=== PATIENT | male | born 1960 | race Caucasian/White ===

== ENCOUNTER 2018-11-16 22:44 | Emergency (ER) | payer MEDICARE, MEDICAID ==
[~2018-11-16] VITALS: Ht 157.5 cm; Wt 93.2 kg
[~2018-11-16 22:44] MED LIST: ASPI81TA26 PO; FLOM0.4C39 PO; HYDR-3715 PO; METO1TAB32 PO; OMEP40CA2 PO; SIMV40TA2 PO; TRAZ-160 PO; VENL100T PO
[2018-11-16] MEDS ORDERED: BUPIVACAINE LIPOSOME/PF 1.3% 20ML VIAL (13.3MG/ML)(EXPAREL)(C9290 PER1MG) INFIL ONE (23:30)
[2018-11-16 23:53] LABS: BASO # 0.1 10^3/uL (0.0-0.2); BASO % 0.7 % (0.0-1.0); EOS # 0.2 10^3/uL (0.0-0.50); EOS % 2.9 % (0.0-3.0); HEMATOCRIT 37.2 % (42.0-52.0); HEMOGLOBIN 12.4 g/dl (13.5-17.5); LYMPH % 11.9 % (24.0-44.0); MEAN CORPUSCULAR HEMOGLOBIN 29.2 pg (27.0-33.0); MEAN CORPUSCULAR HGB CONC 33.3 g/dl (32.0-36.5); MEAN CORPUSCULAR VOLUME 87.5 fl (80.0-96.0); MONO # 0.7 10^3/uL (0.0-0.8); MONO % 8.2 % (0.0-5.0); NEUTROPHILS # 6.1 10^3/uL (1.8-7.7); NEUTROPHILS % 75.8 % (36.0-66.0); PLATELET COUNT, AUTOMATED 189 10^3/uL (150-450); RED BLOOD COUNT 4.25 10^6/uL (4.30-6.10); WHITE BLOOD COUNT 8.1 10^3/uL (4.0-10.0)
[2018-11-16 23:55] LABS: INR 0.96; PROTHROMBIN TIME 12.9 SECONDS (12.1-14.4)
[2018-11-16 23:56] LABS: PARTIAL THROMBOPLASTIN TIME 28.1 SECONDS (25.4-37.6)
[2018-11-17] MEDS ORDERED: NS 500 ML IV ONE ×2 (00:15→00:45)
[2018-11-17 00:16] LABS: BLOOD UREA NITROGEN 24 MG/DL (7-18); CALCIUM LEVEL 7.9 MG/DL (8.5-10.1); CARBON DIOXIDE LEVEL 31 MEQ/L (21-32); CHLORIDE LEVEL 108 MEQ/L (98-107); CPK CREATINE PHOSPHOKINASE 274 U/L (39-308); CREATININE FOR GFR 0.88 MG/DL (0.70-1.30); GLOMERULAR FILTRATION RATE > 60.0 (>56); GLUCOSE, FASTING 121 MG/DL (70-100); MB/CK RELATIVE INDEX 0.69 (< OR =4); POTASSIUM SERUM 4.3 MEQ/L (3.5-5.1); SODIUM LEVEL 141 MEQ/L (136-145); TROPONIN I < 0.02 NG/ML (< 0.10)
[2018-11-17] MEDS ORDERED: ISOVUE-370 76% 100ML VIAL (Q9967) As Ordered ONE (00:38)
--- NOTE | 2018-11-17 02:35 | REPVR ---
EXAM: CT Angiography Chest With Contrast EXAM DATE/TIME: 11/17/2018 12:57 AM CLINICAL HISTORY: 58 years old, male; Right-sided chest pain; Additional info: Cp/eval for R contusion. Evaluate for aortic injury. TECHNIQUE: Imaging protocol: Axial computed tomographic angiography images of the chest with intravenous contrast using CT angiography protocol. Coronal and sagittal reformatted images were created and reviewed. 3D rendering: MIP reconstructed images were created and reviewed. Radiation optimization: All CT scans at this facility use at least one of these dose optimization techniques: automated exposure control; mA and/or kV adjustment per patient size (includes targeted exams where dose is matched to clinical indication); or iterative reconstruction. Contrast material: ISO 370; Contrast volume: 75 ml; Contrast route: IV; COMPARISON: CR Chest, 1 view 11/16/2018 11:37 PM FINDINGS: Limitations: Examination is limited by motion artifact. Pulmonary arteries: No definite pulmonary embolism. Evaluation of the segmental pulmonary arteries are limited. Aorta: Normal. No aortic aneurysm. No aortic dissection. Mild atherosclerotic disease. Lungs: No masses. Linear atelectasis in the right middle lobe. Compressive atelectasis of the right lower lobe. Bleb in the right lower lobe. Pleural space: Moderate pleural effusion. Tiny right pneumothorax. Less than 5%. No left pleural effusion. No left pneumothorax. Heart: Normal. No cardiomegaly. No pericardial effusion. Liver: Multiple hypodense lesions in the left hepatic lobe. Unchanged from prior. Lymph nodes: Mediastinal lymphadenopathy. Few calcified left hilar nodes. Bones/joints: Mild degenerative changes of the shoulders bilaterally. Moderate degenerative spine. Acute severely displaced fracture of the right rib 10th rib posteriorly. No acute spinal fracture. Soft tissues: Unremarkable. IMPRESSION: 1. Limited evaluation. 2. No aortic dissection. 3. Tiny right pneumothorax. Less than 5%. 4. Moderate pleural effusion. 5. Mediastinal lymphadenopathy. Unknown etiology. 6. Multiple hypodense lesions of the left hepatic lobe. Unchanged from prior. No followup is necessary. 7. Acute severely displaced fracture of the right rib 10th rib posteriorly. 8. Additional findings as described. Electronically signed by: Rubina Cosme On 11/17/2018 02:34:51 AM
[2018-11-17 03:02] VITALS: BP 116/64
--- NOTE | 2018-11-17 08:56 | ED PDOC ---
Post-Departure Follow-Up margarita wagoner and néstor faxed formal report of cta chest for fu Hui Medeiros MD Nov 17, 2018 08:56
--- NOTE | 2018-11-17 09:01 | REP ---
CHEST, PORTABLE: AP portable view of the chest was performed compared with prior study of 05/24/2017. There is mild right pleural effusion with adjacent right base atelectasis/infiltrate. Subcentimeter nodular density is seen in the left lung base. The heart is not significantly enlarged. There is mild ectasia of the thoracic aorta. Electronically Signed by Edgar Delaney MD 11/17/2018 04:20 P
--- NOTE | 2018-11-17 14:45 | ECGEPIP ---
Stationary ECG Study [facility] - ED Test Date: 2018-11-16 Pat Name: JESE BACK Department: Room: - Gender: M Bag Valver: bryant : 1960 Requested By: JAMIA COMBS Order Number: [id number] Reading MD: Agus Rodríguez Measurements Intervals [place] Rate: 72 P: -2 SC: 155 QRS: -59 QRSD: 106 T: 18 QT: 372 QTc: 407 Interpretive Statements SINUS RHYTHM PATTERN CONSISTENT WITH PULMONARY DISEASE LEFT ANTERIOR FASCICULAR BLOCK Nonspecific T wave abnormality Comparison tracing not on file Electronically Signed On 11-17-2018 14:44:42 EDT by Agus Rodríguez
--- NOTE | 2018-11-17 14:46 | ECGEPIP ---
Stationary ECG Study [facility] - ED Test Date: 2018-11-17 Pat Name: JESE BACK Department: Room: - Gender: M Transmission Supervisor: bharath : 1960 Requested By: JAMIA COMBS Order Number: [id number] Reading MD: Agus Rodríguez Measurements Intervals [place] Rate: 72 P: 44 TN: 155 QRS: -56 QRSD: 101 T: 18 QT: 360 QTc: 396 Interpretive Statements SINUS RHYTHM MARKED LEFT AXIS DEVIATION PATTERN CONSISTENT WITH PULMONARY DISEASE Nonspecific T wave abnormality Similar to tracing done 11-16-18 at 2309 Electronically Signed On 11-17-2018 14:46:04 EDT by Agus Rodríguez
--- NOTE | 2018-11-20 06:44 | ED PDOC ---
Post-Departure Follow-Up deena palm and dr wagoner faxed formal report of cxr for fu maxg Hui Clark MD November 20, 2018 06:44
== END 2018-11-17 03:07 | disposition home or self-care (01) ==
LOC: M ED 22:44
DX: J90 Pleural effusion, not elsewhere classified (principal); R59.0 Localized enlarged lymph nodes; S22.31XD Fracture of one rib, right side, subsequent encounter for fracture with routine healing; X58.XXXD Exposure to other specified factors, subsequent encounter; Y92.89 Other specified places as the place of occurrence of the external cause; I10 Essential (primary) hypertension; E78.5 Hyperlipidemia, unspecified; F41.9 Anxiety disorder, unspecified; K21.9 Gastro-esophageal reflux disease without esophagitis; N40.0 Benign prostatic hyperplasia without lower urinary tract symptoms; Z79.899 Other long term (current) drug therapy; Z79.82 Long term (current) use of aspirin
CPT/HCPCS: 71045; 71275; 80048; 82550; 82553; 84484; 85025; 85610; 85730; 93005; 96360; 96361; 99285; C9290; Q9967

== ENCOUNTER 2018-12-04 22:57 | Emergency (ER) | payer MEDICARE, MEDICAID ==
[~2018-12-04] VITALS: Ht 157.5 cm; Wt 94.5 kg
[2018-12-05] MEDS ORDERED: PERCOCET 5MG/325MG TAB PO ONE
[2018-12-05 01:33] VITALS: BP 129/70
--- NOTE | 2018-12-05 09:29 | REP ---
Unilateral right ribs PA chest five views History: None provided Comparison chest 11/16/[address] ANGIO chest 11/17/2018 Patchy density is present in the right lower lobe consistent with atelectasis or infiltrate. The left lung is clear. Small right pleural effusion is present. The heart is normal in size. The pulmonary vasculature is normal in appearance. There is a fracture of the right 10th rib unchanged compared to the previous CT ANGIO chest. Impression: 1. Right lower lobe atelectasis or infiltrate. 2. Small right pleural effusion. 3. Right 10th rib fracture unchanged compared to the previous study. Electronically Signed by Teodoro Naik MD 12/05/2018 09:20 A
--- NOTE | 2018-12-09 13:59 | ED PDOC ---
Post-Departure Follow-Up dr wagoner faxed formal report of rib films for fu Hui Medeiros MD December 09, 2018 13:59
== END 2018-12-05 01:42 | disposition home or self-care (01) ==
LOC: M ED 22:57
DX: J90 Pleural effusion, not elsewhere classified (principal); S22.31XD Fracture of one rib, right side, subsequent encounter for fracture with routine healing; X58.XXXD Exposure to other specified factors, subsequent encounter; Y92.89 Other specified places as the place of occurrence of the external cause; J44.9 Chronic obstructive pulmonary disease, unspecified; I10 Essential (primary) hypertension; K21.9 Gastro-esophageal reflux disease without esophagitis; E78.5 Hyperlipidemia, unspecified; F33.9 Major depressive disorder, recurrent, unspecified; M54.5 Low back pain; Z79.899 Other long term (current) drug therapy; Z79.82 Long term (current) use of aspirin

== ENCOUNTER → 2019-03-19 | Outpatient (CLI) | payer MEDICARE, MEDICAID ==
[~2019-03-19] MED LIST changes: -TRAZ-160 PO; +TRAZ-252 PO
--- NOTE | 2019-03-30 12:26 | PFTRPT ---
Height: 62.00 Inches Weight: 198.00 Lbs BSA: 1.90 Diagnosis: R91.8 DATE OF PROCEDURE: 03/19/2019 ORDERED BY: Dr. Gale Spirometry: Pre and post bronchodilator study of excellent technical quality. Forced vital capacity reduced. FEV1 out of proportion. Obstructive index is, therefore, reduced. Flow Volume Loop: Expiratory limb of the flow volume loop consistent with flow rate limitation. Significant bronchodilator response is identified. Lung Volumes: Total lung capacity was not able to be performed as the patient was unable to perform the plethysmography maneuvers for that portion of the study. Diffusing Capacity: Diffusing capacity, although mildly reduced, is appropriate for alveolar volume. Airway Mechanics: Airway resistance markedly elevated with concomitant decrease in airway conductance. IMPRESSION: Mild obstructive ventilatory impairment with significant bronchodilator response. Please correlate clinically. MTDD
== END ==
LOC: M CARPUL 08:34
PROVIDERS: ATTEND Internal Medicine Pulmonary Disease
DX: R91.8 Other nonspecific abnormal finding of lung field (principal)

== ENCOUNTER → 2019-07-17 | Outpatient (CLI) | payer MEDICARE, MEDICAID ==
[~2019-07-17] MED LIST changes: +E-Z-GAS II EFFERVESCENT PACKET (SODIUM BICARB./CITRIC ACID/SIMETHICONE) As Ordered ONE; +E-Z-PAQUE 96% w/w SUSP 176GM BTL As Ordered ONE; -OMEP40CA2 PO; +OMEP40CA97 PO; -SIMV40TA2 PO; +SIMV40TA20 PO; +VARIBAR NECTAR 40% w/v 240ML SUSP BTL As Ordered ONE; +VARIBAR PUDDING 40% w/v 230ML TUBE As Ordered ONE
--- NOTE | 2019-07-18 09:04 | REP ---
Examination Requested: Cookie Swallow Reason For Exam: Dysphasia The procedure was performed by GURPREET Olivares, under the direct supervision of Dr. Kinsey. The procedure was performed with Leti Reddy from speech pathology present. 5 ml aliquots of thin, pudding, mixed fruit, soft food, and pill consistency barium was administered. Penetration was visualized with thin consistency barium. The detailed report of this examination will be provided by speech pathology. 1.4 minutes of fluoroscopy time was utilized for this procedure. Reviewed by GURPREET Metz 07/17/2019 01:50 P Electronically Signed by Antoine Kinsey MD 07/18/2019 08:54 A
== END ==
LOC: M RAD 12:28
PROVIDERS: ATTEND Physician Assistant
DX: R13.10 Dysphagia, unspecified (principal)

== ENCOUNTER → 2019-11-12 | Outpatient (CLI) | payer MEDICARE, MEDICAID ==
[~2019-11-12] MED LIST changes: -E-Z-GAS II EFFERVESCENT PACKET (SODIUM BICARB./CITRIC ACID/SIMETHICONE) As Ordered ONE; -E-Z-PAQUE 96% w/w SUSP 176GM BTL As Ordered ONE; -VARIBAR NECTAR 40% w/v 240ML SUSP BTL As Ordered ONE; -VARIBAR PUDDING 40% w/v 230ML TUBE As Ordered ONE
--- NOTE | 2019-11-12 11:47 | REP ---
CT CHEST WITHOUT IV CONTRAST: CT chest performed without IV contrast. Sagittal and coronal reconstruction images are performed. Comparison is made with a prior study of 03/31/2019 and 11/17/2018. Scattered interstitial fibrotic changes are seen bilaterally. These are greater on the right. There are small bullae in the right lower lobe and to a lesser extent, scattered throughout both lungs. There is a persistent 7 mm nodule in the left lower lobe, which has remained stable since the prior studies. There is an adjacent 2 mm nodular density medial to it. No new nodule is seen. There is no consolidation. Extensive mild mediastinal and hilar adenopathy is again noted unchanged. Some of the lymph nodes in the left mediastinum and hilum are partially calcified. No axillary adenopathy is seen. The heart is upper limits of normal in size. There is no pleural or pericardial effusion. A few small hypodensities in the left lobe of the liver are stable. A diverticulum is noted of the splenic flexure in the colon. Old right 10th rib fracture is again seen posteriorly. There are degenerative changes of the spine. There is a stable compression deformity of T12. IMPRESSION: Stable CT exam of the chest. No change in the 7 mm nodule left lower lobe for 1 year. Mediastinal and hilar adenopathy is also unchanged. Consider followup CT in 6-12 months. Electronically Signed by Edgar Delaney MD 11/12/2019 12:55 P
== END ==
LOC: M RAD 09:47
PROVIDERS: ATTEND Internal Medicine Pulmonary Disease
DX: R91.8 Other nonspecific abnormal finding of lung field (principal); R59.0 Localized enlarged lymph nodes; K76.89 Other specified diseases of liver; K57.90 Diverticulosis of intestine, part unspecified, without perforation or abscess without bleeding

== ENCOUNTER 2020-02-07 23:12 | Emergency (ER) | payer MEDICARE, MEDICAID ==
[2020-02-07] MEDS ORDERED: PROAAER10 INH (23:32)
[2020-02-07] MEDS ORDERED: BEVE1AER INH (23:32)
[2020-02-07] MEDS ORDERED: ARNU1INH PO (23:32)
[2020-02-08 00:14] LABS: BASO # 0.1 10^3/uL (0.0-0.2); BASO % 1.2 % (0.0-1.0); EOS # 0.2 10^3/uL (0.0-0.5); EOS % 3.8 % (0.0-3.0); HEMOGLOBIN 12.9 g/dl (13.5-17.5); LYMPH # 1.2 10^3/uL (1.5-5.0); LYMPH % 27.2 % (24.0-44.0); MEAN CORPUSCULAR HEMOGLOBIN 28.8 pg (27.0-33.0); MEAN CORPUSCULAR HGB CONC 33.1 g/dl (32.0-36.5); MEAN CORPUSCULAR VOLUME 87.1 fl (80.0-96.0); MONO # 0.6 10^3/uL (0.0-0.8); MONO % 14.1 % (0.0-5.0); NEUTROPHILS # 2.3 10^3/uL (1.5-8.5); NEUTROPHILS % 53.2 % (36.0-66.0); PLATELET COUNT, AUTOMATED 174 10^3/uL (150-450); RED BLOOD COUNT 4.48 10^6/uL (4.30-6.10); WHITE BLOOD COUNT 4.3 10^3/uL (4.0-10.0)
[2020-02-08] MEDS ORDERED: KETOROLAC 30 MG/ML 1ML VIAL IV ONE (00:15)
[2020-02-08 00:23] LABS: BLOOD UREA NITROGEN 21 MG/DL (7-18); CALCIUM LEVEL 8.3 MG/DL (8.5-10.1); CARBON DIOXIDE LEVEL 30 MEQ/L (21-32); CHLORIDE LEVEL 110 MEQ/L (98-107); CREATININE FOR GFR 0.86 MG/DL (0.70-1.30); GLOMERULAR FILTRATION RATE > 60.0 (>56); GLUCOSE, FASTING 99 MG/DL (70-100); POTASSIUM SERUM 3.8 MEQ/L (3.5-5.1); SODIUM LEVEL 142 MEQ/L (136-145)
[2020-02-08 00:35] LABS: INR 1.03; PARTIAL THROMBOPLASTIN TIME 27.6 SECONDS (25.0-38.4); PROTHROMBIN TIME 13.2 SECONDS (11.8-14.0)
[2020-02-08] MEDS ORDERED: ISOVUE-370 76% 100ML VIAL As Ordered ONE (01:18)
--- NOTE | 2020-02-08 02:10 | REPVR ---
PROCEDURE INFORMATION: Exam: CT Angiography Chest With Contrast Exam date and time: 02/08/2020 1:33 AM Age: 59 years old Clinical indication: Chest pain TECHNIQUE: Imaging protocol: Computed tomographic angiography of the chest with intravenous contrast. 3D rendering: MIP and/or 3D reconstructed images were created by the technologist. Radiation optimization: All CT scans at this facility use at least one of these dose optimization techniques: automated exposure control; mA and/or kV adjustment per patient size (includes targeted exams where dose is matched to clinical indication); or iterative reconstruction. Contrast material: ISO 370; Contrast volume: 75 ml; Contrast route: INTRAVENOUS (IV); COMPARISON: 1. CT ANGIO CHEST 11/17/2018 12:[address] Chest without contrast 11/12/2019 10:04:32 AM FINDINGS: Pulmonary arteries: No pulmonary embolism. Aorta: The thoracic aorta is intact and patent. There is no thoracic aortic aneurysm, pseudoaneurysm, penetrating atherosclerotic ulcer, intramural hematoma, or dissection. There are mild atherosclerotic calcifications. Superior vena cava: Patent. Tracheobronchial tree: Intact and patent. Lungs: There are 2 mm and 7 mm solid pulmonary nodules in the left lower lobe, which are unchanged compared to the prior CTA chest on 11/17/[address] chest on 11/12/2019. No new pulmonary nodules are noted. There is no lung consolidation. There is scarring in the right middle lobe and dependent atelectasis in both lower lobes. There are mild centrilobular emphysematous changes. Pleural space: Normal. No pneumothorax or pleural effusion. Heart: No cardiomegaly or pericardial effusion. The ratio of the diameter of the right ventricle to the diameter of the left ventricle measures less than 1, which is within normal limits and there is no evidence for a right ventricular strain. Mediastinal space: No mediastinal fluid collection or pneumomediastinum is noted. Lymph nodes: There is prevascular, aortopulmonary window, right paratracheal, subcarinal, and bilateral hilar lymphadenopathy that is stable compared to the prior CTA chest on 11/17/[address] chest on 11/12/2019. There are several calcified prevascular, aortopulmonary window, and left hilar lymph nodes, which represent calcified granulomas that were also present in the prior studies. Liver: There are several cysts in the liver, the largest measuring 14 mm, which are stable compared to the prior CTA chest on 11/17/[address] chest on 11/12/2019 and for which follow-up is not necessary. Gallbladder and bile ducts: The gallbladder is contracted. No calcified gallstones are seen. No dilation of the bile ducts is noted. No calcified stones are seen in the common bile duct. Pancreas: Unremarkable. No dilation of the main pancreatic duct is noted. There is no inflammatory fat stranding around the pancreas to suggest acute pancreatitis. Spleen: Unremarkable. No splenomegaly is noted. Adrenals: Normal. No adrenal mass is noted. Kidneys : There are several benign-appearing left renal sinus cysts for which follow-up is not necessary. The kidneys were not fully imaged. Limited bowel: There is colonic diverticulosis involving the proximal descending colon. The bowel was not fully imaged. Bones/joints: There is a chronic fracture deformity of the right posterior 10th rib. There are chronic mild anterior wedge compression deformities of T10 and T12 that are similar in appearance compared to the prior CTA chest on 11/17/2018. No acute fracture or dislocation is noted. 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 Soft tissues: Unremarkable. No soft tissue fluid collection. IMPRESSION: 1. No acute findings in the chest. No pulmonary embolism. 2. No thoracic aortic aneurysm, pseudoaneurysm, intramural hematoma, penetrating atherosclerotic ulcer, or dissection. 3. 2 mm and 7 mm solid pulmonary nodules in the left lower lobe, which are unchanged compared to the prior CTA chest on 11/17/[address] chest on 11/12/2019. For patients at low risk (minimal or absent history of smoking and of other known risk factors), recommend CT at 6-12 months, then consider CT at 18-24 months. For patients at high risk (history of smoking or of other known risk factors), recommend CT at 6-12 months, then CT at 18-24 months. (Fernando et al., Fleischner Society, 2017) 4. Prevascular, aortopulmonary window, right paratracheal, subcarinal, and bilateral hilar lymphadenopathy that is stable compared to the prior CTA chest on 11/17/[address] chest on 11/12/2019. Electronically signed by: Mike Wilson On 02/08/2020 02:10:19 AM
[2020-02-08] MEDS ORDERED: KETO10TAB PO (03:45)
[2020-02-08 04:03] VITALS: BP 153/80
--- NOTE | 2020-02-08 05:40 | ECGEPIP ---
[facility] - ED Test Date: 2020-02-07 Pat Name: JESE BACK Department: Room: - Gender: Male Roll Capper: amos : 1960 Requested By: JAMIA COMBS Order Number: [id number] Reading MD: Jarod Vasques Measurements Intervals [place] Rate: 52 P: 34 NM: 188 QRS: -43 QRSD: 113 T: 12 QT: 420 QTc: 394 Interpretive Statements SINUS BRADYCARDIA LEFT AXIS DEVIATION MODERATE INTRAVENTRICULAR CONDUCTION DELAY SIMILAR TO 11/17/18 Electronically Signed on 02-08-2020 5:40:20 EDT by Jarod Vasques
--- NOTE | 2020-02-08 05:41 | ECGEPIP ---
[facility] - ED Test Date: 2020-02-08 Pat Name: JESE BACK Department: Room: - Gender: Male Pharmacy Benefits Coordinator: MR : 1960 Requested By: JAMIA COMBS Order Number: [id number] Reading MD: Jarod Vasques Measurements Intervals [place] Rate: 47 P: 22 TN: 199 QRS: -41 QRSD: 110 T: 12 QT: 428 QTc: 380 Interpretive Statements SINUS BRADYCARDIA LEFT AXIS DEVIATION MODERATE INTRAVENTRICULAR CONDUCTION DELAY SIMILAR TO 02/07/20 Electronically Signed on 02-08-2020 5:41:27 EDT by Jarod Vasques
--- NOTE | 2020-02-08 08:30 | REP ---
Clinical: Chest pain . Comparison: 12/05/2018 . Findings: The mediastinum and cardiac silhouette are stable and within normal limits for portable technique. The lung praasd are clear without acute consolidation, effusion, or pneumothorax. Skeletal structures are intact. Impression: No acute cardiopulmonary process appreciated. Electronically Signed by Antoine Kinsey MD 02/08/2020 08:21 A
== END 2020-02-08 04:04 | disposition home or self-care (01) ==
LOC: M ED 23:12
DX: R07.1 Chest pain on breathing (principal); R94.31 Abnormal electrocardiogram [ECG] [EKG]; R91.8 Other nonspecific abnormal finding of lung field; K76.89 Other specified diseases of liver; I10 Essential (primary) hypertension; E78.5 Hyperlipidemia, unspecified; J45.909 Unspecified asthma, uncomplicated; K21.9 Gastro-esophageal reflux disease without esophagitis; F41.9 Anxiety disorder, unspecified; N40.1 Benign prostatic hyperplasia with lower urinary tract symptoms; Z79.51 Long term (current) use of inhaled steroids; Z79.82 Long term (current) use of aspirin; Z79.899 Other long term (current) drug therapy
CPT/HCPCS: 71045; 71275; 80047; 80048; 84484; 85025; 85610; 85730; 93005; 93041; 94760; 96374; 99285; J1885; Q9967

== ENCOUNTER 2020-03-23 11:50 | Emergency (ER) | payer MEDICARE, MEDICAID ==
[~2020-03-23 11:50] MED LIST changes: +ARNU1INH PO; +BEVE1AER INH; +KETO10TAB PO; +PROAAER10 INH
[2020-03-23 12:27] LABS: BASO # 0.1 10^3/uL (0.0-0.2); BASO % 1.2 % (0.0-1.0); EOS # 0.2 10^3/uL (0.0-0.5); EOS % 4.4 % (0.0-3.0); HEMATOCRIT 40.9 % (42.0-52.0); HEMOGLOBIN 13.3 g/dl (13.5-17.5); LYMPH % 24.6 % (24.0-44.0); MEAN CORPUSCULAR HEMOGLOBIN 28.7 pg (27.0-33.0); MEAN CORPUSCULAR HGB CONC 32.5 g/dl (32.0-36.5); MEAN CORPUSCULAR VOLUME 88.1 fl (80.0-96.0); MONO # 0.6 10^3/uL (0.0-0.8); MONO % 13.4 % (0.0-5.0); NEUTROPHILS # 2.3 10^3/uL (1.5-8.5); NEUTROPHILS % 55.9 % (36.0-66.0); PLATELET COUNT, AUTOMATED 182 10^3/uL (150-450); RED BLOOD COUNT 4.64 10^6/uL (4.30-6.10); WHITE BLOOD COUNT 4.1 10^3/uL (4.0-10.0)
--- NOTE | 2020-03-23 12:32 | REPVR ---
PROCEDURE INFORMATION: Exam: CT Cervical Spine Without Contrast Exam date and time: 03/23/2020 12:11 PM Age: 59 years old Clinical indication: Injury or trauma; Fall; Initial encounter; Blunt trauma TECHNIQUE: Imaging protocol: Computed tomography images of the cervical spine without contrast. Radiation optimization: All CT scans at this facility use at least one of these dose optimization techniques: automated exposure control; mA and/or kV adjustment per patient size (includes targeted exams where dose is matched to clinical indication); or iterative reconstruction. COMPARISON: XA Cookie Swallow Mod.Ba Swallow 07/17/2019 12:52 PM FINDINGS: Vertebrae: Loss and slight reversal of cervical lordosis may be positional or associated with muscular spasm. Vertebral body heights are maintained. There is no fracture or dislocation. Facet joints appear well aligned. 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 There is mild levoscoliosis at this level. Discs/Spinal canal/Neural foramina: There are degenerative changes with small disc osteophyte complexes which likely results in [id number] spinal stenosis greatest C6-C7. There is left C2-C3, left greater than right C3-C4, left greater than right C4-C5, greater than right C5-C6, left greater than right C6-C7, and bilateral C7-T1 neural foraminal narrowing. Prevertebral Space: Prevertebral soft tissues appear normal. Soft tissues: Unremarkable. Lungs: Lung apices are unremarkable for acute finding. IMPRESSION: 1. Loss of cervical lordosis. No evidence of fracture or dislocation. 2. Other findings as described. Electronically signed by: Ana Luisa Montoya On 03/23/2020 12:31:52 PM
--- NOTE | 2020-03-23 12:34 | REPVR ---
PROCEDURE INFORMATION: Exam: CT Head Without Contrast Exam date and time: 03/23/2020 12:11 PM Age: 59 years old Clinical indication: Injury or trauma; Fall; Initial encounter; Blunt trauma (contusions or hematomas) TECHNIQUE: Imaging protocol: Computed tomography of the head without contrast. Radiation optimization: All CT scans at this facility use at least one of these dose optimization techniques: automated exposure control; mA and/or kV adjustment per patient size (includes targeted exams where dose is matched to clinical indication); or iterative reconstruction. COMPARISON: No relevant prior studies available. FINDINGS: Brain: There is no acute intracranial hemorrhage. No extra-axial fluid collection. No evidence of acute infarct. Delaney white differentiation is intact. There is no evidence of mass. There is no mass effect or midline shift. Ventricles: No ventriculomegaly. Bones/joints: No acute fracture. Sinuses: There is mild mucosal thickening in left maxillary sinus. Mastoid air cells: No significant mastoid effusion. Soft tissues: Unremarkable as visualized. IMPRESSION: No evidence of acute intracranial abnormality. Electronically signed by: Ana Luisa Montoya On 03/23/2020 12:34:28 PM
[2020-03-23 12:37] LABS: INR 0.95; PROTHROMBIN TIME 12.8 SECONDS (11.8-14.0)
[2020-03-23 12:38] LABS: PARTIAL THROMBOPLASTIN TIME 26.3 SECONDS (25.0-38.4)
[2020-03-23 12:51] LABS: ALBUMIN 3.3 GM/DL (3.2-5.2); ALT/SGPT 24 U/L (12-78); AMYLASE 49 U/L (25-115); BILIRUBIN,DIRECT 0.1 MG/DL (0.0-0.2); BILIRUBIN,TOTAL 0.3 MG/DL (0.2-1.0); BLOOD UREA NITROGEN 24 MG/DL (7-18); CALCIUM LEVEL 8.7 MG/DL (8.5-10.1); CARBON DIOXIDE LEVEL 31 MEQ/L (21-32); CHLORIDE LEVEL 108 MEQ/L (98-107); CK-MB VALUE MASS 1.9 NG/ML (<3.6); CPK CREATINE PHOSPHOKINASE 128 U/L (39-308); CREATININE FOR GFR 0.78 MG/DL (0.70-1.30); ETHYL ALCOHOL (ETHANOL) < 0.003 % (0.000-0.010); GLOMERULAR FILTRATION RATE > 60.0 (>56); GLUCOSE, FASTING 86 MG/DL (70-100); LIPASE 65 U/L (73-393); MB/CK RELATIVE INDEX 1.48 (< OR =4); POTASSIUM SERUM 3.6 MEQ/L (3.5-5.1); SODIUM LEVEL 141 MEQ/L (136-145); TOTAL PROTEIN 6.5 GM/DL (6.4-8.2); TROPONIN I < 0.02 NG/ML (< 0.10)
--- NOTE | 2020-03-23 13:17 | REPVR ---
PROCEDURE INFORMATION: Exam: XR Chest, 1 View Exam date and time: 03/23/2020 1:07 PM Age: 59 years old Clinical indication: Injury or trauma; Fall; Initial encounter; Sprain or strain TECHNIQUE: Imaging protocol: XR of the chest Views: 1 view. COMPARISON: CR PORTABLE CHEST X-RAY 02/07/2020 11:37 PM FINDINGS: Lungs: There is stable left retrocardiac opacity likely related to bronchovascular markings. There is new right medial basilar opacity which may be atelectasis or infiltrate and pneumonia correlate clinically. Pleural space: No significant visible pleural effusion. No pneumothorax. Heart/Mediastinum: No significant cardiomegaly. Bones/joints: No acute finding. IMPRESSION: New right basilar opacity may be atelectasis and/or pneumonia. Electronically signed by: Ana Luisa Montoya On 03/23/2020 13:17:41 PM
--- NOTE | 2020-03-23 13:19 | REPVR ---
PROCEDURE INFORMATION: Exam: XR Left Elbow Exam date and time: 03/23/2020 1:07 PM Age: 59 years old Clinical indication: Injury or trauma; Fall; Initial encounter; Sprain or strain; Elbow; Left TECHNIQUE: Imaging protocol: XR Left elbow. Views: 3 or more views. COMPARISON: No relevant prior studies available. FINDINGS: Bones/joints: There is no evidence of acute fracture. No dislocation. Mild degenerative changes between humerus. Soft tissues: Soft tissues: There is no evidence of fat pad sign to suggest joint effusion. IMPRESSION: No evidence of fracture or dislocation. Electronically signed by: Ana Luisa Montoya On 03/23/2020 13:18:59 PM
[2020-03-23 14:55] VITALS: BP 134/75
[2020-03-23 15:59] LABS: AMPHETAMINES LEVEL URINE NEGATIVE (NEGATIVE); BARBITURATES URINE NEGATIVE (NEGATIVE); BENZODIAZEPINES URINE NEGATIVE (NEGATIVE); CANNABINOIDS URINE NEGATIVE (NEGATIVE); COCAINE METABOLITE URINE NEGATIVE (NEGATIVE); METHADONE URINE NEGATIVE (NEGATIVE); OPIATES URINE NEGATIVE (NEGATIVE); PHENCYCLIDINE URINE NEGATIVE (NEGATIVE)
[2020-03-23] MEDS ORDERED: ISOVUE-370 76% 100ML VIAL As Ordered ONE (16:34)
--- NOTE | 2020-03-23 17:07 | REPVR ---
PROCEDURE INFORMATION: Exam: CT Abdomen And Pelvis With Contrast Exam date and time: 03/23/2020 4:47 PM Age: 59 years old Clinical indication: Injury or trauma; Fall; Initial encounter; Blunt; Abdominal wall; Additional info: Fall- finding on chest xray TECHNIQUE: Imaging protocol: Computed tomography of the abdomen and pelvis with intravenous contrast. Radiation optimization: All CT scans at this facility use at least one of these dose optimization techniques: automated exposure control; mA and/or kV adjustment per patient size (includes targeted exams where dose is matched to clinical indication); or iterative reconstruction. Contrast material: ISO 370; Contrast volume: 100 ml; Contrast route: INTRAVENOUS (IV); COMPARISON: CT ABD/PEL W/IV CONTRAST ONLY 05/24/2017 12:52 PM FINDINGS: Liver: Multiple fluid density cyst in the liver, largest measuring 1.2 cm, to which no further follow-up is necessary. Gallbladder and bile ducts: Unremarkable. No ductal dilation. Pancreas: Unremarkable. No ductal dilation. Spleen: Unremarkable. Adrenals: Unremarkable. Kidneys and ureters: Fluid density parapelvic cysts in the left kidney, largest measuring 2.8 cm, to which no further follow-up is necessary. No hydronephrosis or stones. Stomach and bowel: Scattered colonic diverticulosis without evidence of diverticulitis. Small bowel loops are unremarkable. Appendix: No evidence of appendicitis. Intraperitoneal space: No pneumoperitoneum. No significant fluid collection. Vasculature: Unremarkable. Lymph nodes: No enlarged lymph nodes. Bladder: Unremarkable. Reproductive: Multiple prostate calcifications. Bones/joints: Multilevel degenerative changes of the visualized spine. No acute osseous lesion or fracture. Soft tissues: Unremarkable. IMPRESSION: 1. No acute intra-abdominal findings. 2. Chronic findings, as above. Electronically signed by: Shade Valladares On 03/23/2020 17:06:45 PM
--- NOTE | 2020-03-23 17:10 | REPVR ---
PROCEDURE INFORMATION: Exam: CT Chest With Contrast Exam date and time: 03/23/2020 4:47 PM Age: 59 years old Clinical indication: Injury or trauma; Fall; Initial encounter; Blunt trauma (contusions or hematomas); Additional info: Fall- finding on chest xray TECHNIQUE: Imaging protocol: Computed tomography of the chest with intravenous contrast. Radiation optimization: All CT scans at this facility use at least one of these dose optimization techniques: automated exposure control; mA and/or kV adjustment per patient size (includes targeted exams where dose is matched to clinical indication); or iterative reconstruction. Contrast material: ISO 370; Contrast volume: 100 ml; Contrast route: INTRAVENOUS (IV); COMPARISON: CT Chest without contrast 11/12/2019 10:04 AM FINDINGS: Lungs: Mild bibasilar dependent atelectasis of the lower lobes. Chronic stable adjacent 0.6 cm and 0.2 cm solid nodules in the left lower lobe. No new nodules. No focal areas of consolidation. Pleural space: No pleural effusion or pneumothorax. Heart: Mild calcifications of the coronary arteries. No cardiomegaly. Aorta: Mild atherosclerotic calcifications of the aorta. Lymph nodes: Chronic unchanged pathologically enlarged some partially calcified mediastinal and hilar lymph nodes, of unknown etiology. Bones/joints: Multilevel degenerative changes of the visualized spine. No acute fracture. Chronic posterior right 10th rib fracture. Soft tissues: Unremarkable. IMPRESSION: 1. No acute findings in the thorax. 2. Chronic findings, as above. Electronically signed by: Shade Valladares On 03/23/2020 17:10:53 PM
--- NOTE | 2020-03-23 17:12 | REPVR ---
PROCEDURE INFORMATION: Exam: XR Left Tibia and Fibula Exam date and time: 03/23/2020 4:18 PM Age: 59 years old Clinical indication: Pain; Lower leg; Left; Additional info: Fall TECHNIQUE: Imaging protocol: XR Left tibia and fibula. Views: 2 views. COMPARISON: No relevant prior studies available. FINDINGS: Bones/joints: Osteoarthritic changes of the knee. No acute fracture or dislocation. Soft tissues: Unremarkable. IMPRESSION: No acute fracture or dislocation. Electronically signed by: Shade Valladares On 03/23/2020 17:12:04 PM
[2020-03-23] MEDS ORDERED: KETOROLAC 30 MG/ML 1ML VIAL IV ONE (17:15)
[2020-03-23] MEDS ORDERED: KETO10TAB PO (17:16)
--- NOTE | 2020-04-04 12:19 | ECGEPIP ---
[facility] - ED Test Date: 2020-03-23 Pat Name: JESE BACK Department: Room: - Gender: Male Design Director: : [id number] Requested By: HAY Andre Order Number: [id number] Reading MD: Fatoumata Eric Measurements Intervals [place] Rate: 53 P: 16 MO: 180 QRS: -49 QRSD: 113 T: 11 QT: 408 QTc: 384 Interpretive Statements SINUS BRADYCARDIA LEFT ANTERIOR FASCICULAR BLOCK ABNORMAL ECG INTERPRETATION BASED ON A DEFAULT AGE OF 40 YEARS SEE SCANNED DOWNTIME REPORT
== END 2020-03-23 19:35 | disposition home or self-care (01) ==
LOC: EDBD 11:50 → M ED 11:50
DX: S06.0X0A Concussion without loss of consciousness, initial encounter (principal); W10.8XXA Fall (on) (from) other stairs and steps, initial encounter; Y93.89 Activity, other specified; Y92.008 Other place in unspecified non-institutional (private) residence as the place of occurrence of the external cause; Y99.9 Unspecified external cause status
CPT/HCPCS: 70450; 71045; 71260; 72125; 73080; 73590; 74177; 80047; 80048; 80076; 80307; 81001; 82150; 82550; 82553; 83605; 83690; 84484; 85025; 85610; 85730; 86850; 86900; 86901; 93005; 93041; 94760; 96372; 99285; G0480; J1885; Q9967

== ENCOUNTER 2020-11-12 17:46 | Emergency (ER) | payer MEDICARE, MEDICAID ==
[~2020-11-12] VITALS: Ht 154.9 cm; Wt 81.8 kg
--- NOTE | 2020-11-12 19:47 | REPVR ---
PROCEDURE INFORMATION: Exam: CT Head Without Contrast Exam date and time: 11/12/2020 6:25 PM Age: 60 years old Clinical indication: Injury or trauma; Fall; Blunt trauma (contusions or hematomas); Consciousness not specified; Additional info: Swelling to left forehead after falling and hitting a rock TECHNIQUE: Imaging protocol: Computed tomography of the head without contrast. Radiation optimization: All CT scans at this facility use at least one of these dose optimization techniques: automated exposure control; mA and/or kV adjustment per patient size (includes targeted exams where dose is matched to clinical indication); or iterative reconstruction. COMPARISON: CT Head without contrast 03/23/2020 11:58 AM FINDINGS: Brain: The brain demonstrates mild generalized volume loss. No hemorrhage or edema seen. Cerebral ventricles: No ventriculomegaly. Bones/joints: No acute calvarial fracture seen. Paranasal sinuses: Visualized sinuses are unremarkable. No fluid levels. Mastoid air cells: Visualized mastoid air cells are well aerated. Orbital cavity: A focal right globe likely scleral senescent calcification. Soft tissues: Left frontal scalp soft tissue swelling. IMPRESSION: No acute intracranial abnormality seen. Electronically signed by: Neda Huitron On 11/12/2020 19:47:29 PM
--- NOTE | 2020-11-12 20:00 | REPVR ---
PROCEDURE INFORMATION: Exam: CT Cervical Spine Without Contrast Exam date and time: 11/12/2020 6:25 PM Age: 60 years old Clinical indication: Injury or trauma; Fall; Blunt trauma; Additional info: Swelling to left forehead after falling and hitting a rock TECHNIQUE: Imaging protocol: Computed tomography images of the cervical spine without contrast. Radiation optimization: All CT scans at this facility use at least one of these dose optimization techniques: automated exposure control; mA and/or kV adjustment per patient size (includes targeted exams where dose is matched to clinical indication); or iterative reconstruction. COMPARISON: CT Spine,cervical w/o contrast 03/23/2020 11:58 AM FINDINGS: Bones/joints: Reversal of the cervical lordosis may be positional or due to muscle spasm. Mild lower cervical dextroconvex scoliosis and upper thoracic levoconvex scoliosis. No acute fracture seen. 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 Disc height loss and spondylosis from C3-C4 through C7-T1, in particular from C5-C6 through C7-T1. No severe central spinal canal stenosis. Central spinal canal stenosis is likely mild to moderate in degree at C6-C7. Multilevel neural foraminal stenoses due to uncovertebral and facet arthropathy, as before. Discs/Spinal canal/Neural foramina: See "Bones/joints" finding. Lymph nodes: Small mediastinal lymph nodes are noted, not pathologically enlarged by short axis measurements, for example a right paratracheal lymph node measuring 8.7 mm. Similar to decreased in conspicuity since prior. Lungs: Lung apices are normal. Soft tissues: Unremarkable. IMPRESSION: No cervical spine fracture seen. Electronically signed by: Neda Huitron On 11/12/2020 20:00:42 PM
[2020-11-12 20:09] VITALS: BP 140/82
== END 2020-11-12 20:10 | disposition home or self-care (01) ==
LOC: M ED 17:46
DX: S00.03XA Contusion of scalp, initial encounter (principal); W01.198A Fall on same level from slipping, tripping and stumbling with subsequent striking against other object, initial encounter; Z79.82 Long term (current) use of aspirin; Z79.51 Long term (current) use of inhaled steroids; Z79.899 Other long term (current) drug therapy; Y92.9 Unspecified place or not applicable; Y93.9 Activity, unspecified; Y99.9 Unspecified external cause status

== ENCOUNTER → 2020-12-22 | Outpatient (CLI) | payer MEDICARE, MEDICAID ==
--- NOTE | 2020-12-22 13:29 | REP ---
INDICATION: ABNORMAL FINDING OF LUNG FIELD COMPARISON: Multiple examinations dating through 11/17/2018 TECHNIQUE: Axial noncontrast images from the thoracic inlet to the upper abdomen with coronal and sagittal reformations. This CT examination was performed using the following dose reduction techniques: Automated exposure control, adjustment of mA and/or kv according to the patient's size, and use of iterative reconstruction technique. FINDINGS: Significant mediastinal and bilateral hilar adenopathy with few calcified lymph nodes again noted and essentially unchanged. Lung prasad demonstrate few scattered bilateral pulmonary nodules which in retrospect appear essentially unchanged compared through 2019. No new acute consolidation, nodule or mass lesion identified. No effusion. No pneumothorax. Tracheobronchial tree is patent. Further evaluation of the mediastinum demonstrates stable atherosclerotic changes to the thoracic aorta and coronary arteries without aortic aneurysm. No pericardial effusion. Skeletal structures demonstrate degenerative changes and old right rib fractures along with chronic stable changes to the thoracic spine. IMPRESSION: 1. Significant but stable mediastinal and hilar adenopathy with calcified lymph nodes as well as few stable scattered bilateral pulmonary nodules. Findings may reflect sequelae of granulomatous disease. 2. No new acute mediastinal or pleuroparenchymal process appreciated. <Electronically signed by Antoine Kinsey > 12/22/20 [id number]
== END ==
LOC: M RAD 12:54
PROVIDERS: ATTEND Internal Medicine Pulmonary Disease
DX: R91.8 Other nonspecific abnormal finding of lung field (principal)

== ENCOUNTER → 2021-01-26 | Outpatient (CLI) | payer MEDICARE, MEDICAID ==
[~2021-01-26] MED LIST changes: +E-Z-GAS II EFFERVESCENT PACKET (SODIUM BICARB./CITRIC ACID/SIMETHICONE) As Ordered ONE; +E-Z-HD 98% w/w 340GM SUSP BTL As Ordered ONE; +E-Z-PAQUE 96% w/w SUSP 176GM BTL As Ordered ONE; +OMEP40CA4 PO; -OMEP40CA97 PO
== END ==
LOC: M RAD 09:27
PROVIDERS: ATTEND Otolaryngology
DX: R13.10 Dysphagia, unspecified (principal)

== ENCOUNTER 2021-05-04 13:00 | Outpatient (RCR) | payer MEDICARE, MEDICAID ==
[~2021-05-04 13:00] MED LIST changes: -E-Z-GAS II EFFERVESCENT PACKET (SODIUM BICARB./CITRIC ACID/SIMETHICONE) As Ordered ONE; -E-Z-HD 98% w/w 340GM SUSP BTL As Ordered ONE; -E-Z-PAQUE 96% w/w SUSP 176GM BTL As Ordered ONE
== END 2021-05-21 ==
LOC: M ST 13:00
PROVIDERS: ATTEND Otolaryngology
DX: R13.10 Dysphagia, unspecified (principal)

== ENCOUNTER → 2021-05-19 | Outpatient (CLI) | payer MEDICARE, MEDICAID ==
[~2021-05-19] MED LIST changes: +E-Z-PAQUE 96% w/w SUSP 176GM BTL As Ordered ONE; +VARIBAR NECTAR 40% w/v 240ML SUSP BTL As Ordered ONE; +VARIBAR PUDDING 40% w/v 230ML TUBE As Ordered ONE
--- NOTE | 2021-05-19 16:57 | REP ---
INDICATION: DYSPHAGIA. COMPARISON: None. TECHNIQUE: The procedure was performed by GURPREET Elliott, under the direct supervision of Dr. Delaney. The procedure was performed with Vee Hutchinson from speech pathology present. 5 ml aliquots of thin, pudding, mixed fruit, soft food, hard food and pill consistency barium was administered. FINDINGS: Penetration and aspiration was seen on a most of the liquid consistencies of barium. The detailed report of this examination will be provided by speech pathology. IMPRESSION: Penetration and aspiration was seen on most of the liquid consistencies of barium. Please see full report from speech pathology for further evaluation. 2.6 minutes of fluoroscopy time was utilized for this procedure. Some fluoroscopic images are performed with last image hold technology. These images require no additional radiation <Electronically signed by Sandy Dubose > 05/19/21 [id number] <Electronically signed by Edgar Delaney > 05/19/21 [id number]
== END ==
LOC: M RAD 10:17
PROVIDERS: ATTEND Otolaryngology
DX: R13.10 Dysphagia, unspecified (principal)

== ENCOUNTER 2021-06-02 13:03 | Outpatient (RCR) | payer MEDICARE, MEDICAID ==
[~2021-06-02 13:03] MED LIST changes: -E-Z-PAQUE 96% w/w SUSP 176GM BTL As Ordered ONE; -VARIBAR NECTAR 40% w/v 240ML SUSP BTL As Ordered ONE; -VARIBAR PUDDING 40% w/v 230ML TUBE As Ordered ONE
== END 2021-06-20 ==
LOC: M ST 13:03
PROVIDERS: ATTEND Otolaryngology
DX: R13.10 Dysphagia, unspecified (principal)

== ENCOUNTER 2022-02-20 19:29 | Emergency (ER) | payer MEDICARE, MEDICAID ==
[~2022-02-20] VITALS: Ht 154.9 cm; Wt 83.2 kg
[2022-02-20 19:46] LABS: BASO # 0.1 10^3/uL (0.0-0.2); BASO % 0.7 % (0.0-1.0); EOS # 0.1 10^3/uL (0.0-0.5); EOS % 1.6 % (0.0-3.0); HEMATOCRIT 38.5 % (42.0-52.0); HEMOGLOBIN 12.7 g/dl (13.5-17.5); LYMPH # 1.3 10^3/uL (1.5-5.0); MEAN CORPUSCULAR HEMOGLOBIN 27.9 pg (27.0-33.0); MEAN CORPUSCULAR VOLUME 84.6 fl (80.0-96.0); MONO # 1.2 10^3/uL (0.0-0.8); MONO % 14.9 % (2.0-8.0); NEUTROPHILS # 5.5 10^3/uL (1.5-8.5); NEUTROPHILS % 66.3 % (36.0-66.0); PLATELET COUNT, AUTOMATED 194 10^3/uL (150-450); RED BLOOD COUNT 4.55 10^6/uL (4.30-6.10); WHITE BLOOD COUNT 8.3 10^3/uL (4.0-10.0)
[2022-02-20 20:12] LABS: CK-MB VALUE MASS 1.1 NG/ML (<3.6); MB/CK RELATIVE INDEX 0.97 (< OR =4)
[2022-02-20 20:21] LABS: ALBUMIN 3.1 GM/DL (3.2-5.2); ALT/SGPT 27 U/L (12-78); BILIRUBIN,DIRECT < 0.1 MG/DL (0.0-0.2); BILIRUBIN,TOTAL 0.3 MG/DL (0.2-1.0); BLOOD UREA NITROGEN 21 MG/DL (7-18); CALCIUM LEVEL 8.2 MG/DL (8.8-10.2); CARBON DIOXIDE LEVEL 30 MEQ/L (21-32); CHLORIDE LEVEL 107 MEQ/L (98-107); CREATININE FOR GFR 0.99 MG/DL (0.70-1.30); GLOMERULAR FILTRATION RATE > 60.0 (>49); GLUCOSE, FASTING 113 MG/DL (70-100); LIPASE 61 U/L (73-393); POTASSIUM SERUM 3.3 MEQ/L (3.5-5.1); SODIUM LEVEL 140 MEQ/L (136-145); THYROID STIMULATING HORMONE 0.604 uIU/ML (0.358-3.740); TOTAL PROTEIN 6.5 GM/DL (6.4-8.2)
[2022-02-20] MEDS ORDERED: ISOVUE-370 76% 100ML VIAL As Ordered ONE (20:48)
[2022-02-20 21:08] LABS: CK-MB VALUE MASS < 1.0 NG/ML (<3.6); CPK CREATINE PHOSPHOKINASE 100 U/L (39-308)
[2022-02-20 22:00] VITALS: BP 163/87
== END 2022-02-20 22:38 | disposition home or self-care (01) ==
LOC: EDBD 19:29 → M ED 19:29
DX: S46.912A Strain of unspecified muscle, fascia and tendon at shoulder and upper arm level, left arm, initial encounter (principal); R07.89 Other chest pain; R25.1 Tremor, unspecified; R91.8 Other nonspecific abnormal finding of lung field; I25.2 Old myocardial infarction; I10 Essential (primary) hypertension; Z82.49 Family history of ischemic heart disease and other diseases of the circulatory system; Z79.82 Long term (current) use of aspirin; Z79.899 Other long term (current) drug therapy
CPT/HCPCS: 71045; 71275; 80048; 80076; 82550; 82553; 83690; 84443; 84484; 85025; 93005; 93041; 94760; 99285; Q9967

== ENCOUNTER → 2022-02-21 | Outpatient (CLI) | payer MEDICARE, MEDICAID | LOC: M SOG 13:17 | PROVIDERS: ATTEND Physician Assistant | DX: M25.512 Pain in left shoulder (principal) ==

== ENCOUNTER → 2022-09-06 | Outpatient (CLI) | payer MEDICARE, MEDICAID ==
[2022-09-06 16:31] LABS: CPK CREATINE PHOSPHOKINASE 97 U/L (46-171); RHEUMATOID FACTOR QUANT < 3.5 IU/ML (<14)
[2022-09-06 16:33] LABS: FOLATE > 24.00 NG/ML (>5.4); THYROID STIMULATING HORMONE 0.913 uIU/ML (0.55-4.78); TOTAL 25(OH) VITAMIN D 28.8 NG/ML (20.0-100.0); VITAMIN B12 LEVEL 765 PG/ML (211-911)
== END ==
LOC: M LAB 15:13
PROVIDERS: ATTEND Psychiatry & Neurology Neurology
DX: R53.1 Weakness (principal); E03.9 Hypothyroidism, unspecified; M10.9 Gout, unspecified; G62.9 Polyneuropathy, unspecified

== ENCOUNTER → 2022-10-23 | Outpatient (CLI) | payer MEDICARE, MEDICAID | LOC: M SLEEP 20:00 | PROVIDERS: ATTEND Internal Medicine Pulmonary Disease | DX: G47.33 Obstructive sleep apnea (adult) (pediatric) (principal) ==

== ENCOUNTER → 2023-03-15 | Outpatient (CLI) | payer MEDICARE, MEDICAID | LOC: M PAIN 08:00 | PROVIDERS: ATTEND Nurse Practitioner Family | DX: M79.10 Myalgia, unspecified site (principal); G20 Parkinson's disease; G47.33 Obstructive sleep apnea (adult) (pediatric); I10 Essential (primary) hypertension; K21.9 Gastro-esophageal reflux disease without esophagitis; Z86.59 Personal history of other mental and behavioral disorders; Z79.82 Long term (current) use of aspirin; Z79.899 Other long term (current) drug therapy ==

== ENCOUNTER → 2023-05-21 | Outpatient (CLI) | payer MEDICARE, MEDICAID ==
[~2023-05-21] MED LIST changes: +TRIAMCINOLONE ACETONIDE SUSP 40MG/ML 1ML VIAL As Ordered ONE
== END ==
LOC: M PAIN 08:30
PROVIDERS: ATTEND Anesthesiology
DX: M79.18 Myalgia, other site (principal); G89.29 Other chronic pain; Z80.0 Family history of malignant neoplasm of digestive organs; Z80.8 Family history of malignant neoplasm of other organs or systems; Z79.82 Long term (current) use of aspirin; Z79.899 Other long term (current) drug therapy
CPT/HCPCS: 20552; J0665; J3301

== ENCOUNTER → 2023-08-22 | Outpatient (CLI) | payer MEDICARE, MEDICAID ==
[~2023-08-22] MED LIST changes: -TRIAMCINOLONE ACETONIDE SUSP 40MG/ML 1ML VIAL As Ordered ONE
== END ==
LOC: M PAIN 15:15
PROVIDERS: ATTEND Nurse Practitioner Family
DX: M79.18 Myalgia, other site (principal); M54.50 Low back pain, unspecified; I10 Essential (primary) hypertension; E78.5 Hyperlipidemia, unspecified; E11.9 Type 2 diabetes mellitus without complications; G47.33 Obstructive sleep apnea (adult) (pediatric); F32.A Depression, unspecified; G89.29 Other chronic pain; K21.9 Gastro-esophageal reflux disease without esophagitis; Z79.82 Long term (current) use of aspirin; Z79.899 Other long term (current) drug therapy

== ENCOUNTER 2023-09-16 17:53 | Observation (INO) | payer MEDICARE, MEDICAID ==
[~2023-09-16] VITALS: Ht 154.9 cm; Wt 69.0 kg
[~2023-09-16 17:53] MED LIST changes: +ARNU1INH INH; -ARNU1INH PO
[2023-09-17] MEDS: IBUPROFEN 600MG TAB PO ONE (01:54)
[2023-09-17] MEDS ORDERED: ONDANSETRON 4MG 2ML VIAL IV PRN (03:00)
[2023-09-17] MEDS ORDERED: BISACODYL 10MG SUPP PR PRN (03:00)
[2023-09-17] MEDS ORDERED: ALBUTEROL SULFATE 2.5MG/0.5ML INH NEB SOLN INH PRN (03:00)
[2023-09-17 03:06] LABS: BASO # 0.1 10^3/uL (0.0-0.2); BASO % 0.5 % (0.0-1.0); EOS % 0.1 % (0.0-3.0); HEMATOCRIT 39.2 % (42.0-52.0); HEMOGLOBIN 13.2 g/dl (13.5-17.5); LYMPH # 0.9 10^3/uL (1.5-5.0); LYMPH % 8.9 % (24.0-44.0); MEAN CORPUSCULAR HEMOGLOBIN 29.5 pg (27.0-33.0); MEAN CORPUSCULAR HGB CONC 33.7 g/dl (32.0-36.5); MEAN CORPUSCULAR VOLUME 87.7 fl (80.0-96.0); MONO # 1.2 10^3/uL (0.0-0.8); MONO % 12.1 % (2.0-8.0); NEUTROPHILS # 7.5 10^3/uL (1.5-8.5); NEUTROPHILS % 78.1 % (36.0-66.0); PLATELET COUNT, AUTOMATED 245 10^3/uL (150-450); RED BLOOD COUNT 4.47 10^6/uL (4.30-6.10); WHITE BLOOD COUNT 9.6 10^3/uL (4.0-10.0)
[2023-09-17 03:37] LABS: RSV AMPLIFICATION NEGATIVE (NEGATIVE)
[2023-09-17 03:49] LABS: BLOOD UREA NITROGEN 29 MG/DL (9-23); CALCIUM LEVEL 8.4 MG/DL (8.3-10.6); CARBON DIOXIDE LEVEL 29 MMOL/L (20-31); CHLORIDE LEVEL 106 MMOL/L (98-107); CREATININE FOR GFR 0.67 MG/DL (0.70-1.30); GLOMERULAR FILTRATION RATE > 60.0 (>49); GLUCOSE, FASTING 142 MG/DL (74-106); POTASSIUM SERUM 3.8 MMOL/L (3.5-5.1); SODIUM LEVEL 138 MMOL/L (136-145)
[2023-09-17 07:00] VITALS: TEMP 98.2
[2023-09-17] MEDS ORDERED: PANTOPRAZOLE 40MG TAB (PROTONIX) PO SCH (09:00)
[2023-09-17] MEDS ORDERED: VENTAER INH (09:01)
[2023-09-17] MEDS ORDERED: OMEP-173 PO (09:01)
[2023-09-17] MEDS ORDERED: SIMV20TA22 PO (09:01)
[2023-09-17] MEDS ORDERED: THERTAB52 PO (09:10)
[2023-09-17] MEDS ORDERED: FINA5TAB2 PO (09:10)
[2023-09-17] MEDS ORDERED: ACET-683 PO (09:10)
[2023-09-17] MEDS ORDERED: HOME MED LIST COMPLETE! XX SCH (09:15)
[2023-09-17] MEDS ORDERED: PERCOCET PO (10:10)
[2023-09-17] MEDS: OMEPRAZOLE 20MG CAP PO SCH (12:26)
[2023-09-17 16:55] VITALS: BP 156/89; TEMP 99.1; O2SAT 94
[2023-09-17] MEDS: VENLAFAXINE 25 MG TAB PO SCH (21:04)
[2023-09-17] MEDS: traZODone 50 MG TAB PO SCH (21:04)
[2023-09-17] MEDS: TAMSULOSIN 0.4 MG CAP PO SCH (21:05)
[2023-09-17] MEDS: ASPIRIN 81MG ENTERIC TABLET PO SCH (21:05)
[2023-09-17 21:48] VITALS: BP 141/82; TEMP 98.1; O2SAT 92
[2023-09-18 05:44] VITALS: BP 118/77; TEMP 99; O2SAT 93
[2023-09-18 06:16] LABS: HEMOGLOBIN 12.6 g/dl (13.5-17.5); MEAN CORPUSCULAR HEMOGLOBIN 28.9 pg (27.0-33.0); MEAN CORPUSCULAR HGB CONC 33.2 g/dl (32.0-36.5); MEAN CORPUSCULAR VOLUME 87.2 fl (80.0-96.0); PLATELET COUNT, AUTOMATED 235 10^3/uL (150-450); RED BLOOD COUNT 4.36 10^6/uL (4.30-6.10); WHITE BLOOD COUNT 9.3 10^3/uL (4.0-10.0)
[2023-09-18 06:45] LABS: BLOOD UREA NITROGEN 23 MG/DL (9-23); CALCIUM LEVEL 8.2 MG/DL (8.3-10.6); CARBON DIOXIDE LEVEL 29 MMOL/L (20-31); CHLORIDE LEVEL 104 MMOL/L (98-107); CREATININE FOR GFR 0.69 MG/DL (0.70-1.30); GLOMERULAR FILTRATION RATE > 60.0 (>49); GLUCOSE, FASTING 124 MG/DL (74-106); MAGNESIUM LEVEL 1.7 MG/DL (1.8-2.4); POTASSIUM SERUM 3.8 MMOL/L (3.5-5.1); SODIUM LEVEL 139 MMOL/L (136-145)
[2023-09-18] MEDS: FINASTERIDE 5MG TAB PO SCH (08:53)
[2023-09-18] MEDS: SIMVASTATIN 20 MG TAB PO SCH (08:53)
[2023-09-18] MEDS: ENOXAPARIN 40MG/0.4ML SYRINGE (J1650 PER 10MG) SC SCH (08:53)
[2023-09-18 14:15] VITALS: BP 122/84; TEMP 98.3; O2SAT 94
[2023-09-18 19:41] VITALS: BP 127/79; TEMP 98.4; O2SAT 95
[2023-09-18] MEDS: PERCOCET 5MG/325MG TAB PO PRN (20:07)
[2023-09-19 06:12] VITALS: BP 132/84; TEMP 97.7; O2SAT 96
[2023-09-19 07:09] LABS: HEMATOCRIT 39.3 % (42.0-52.0); MEAN CORPUSCULAR HEMOGLOBIN 29.1 pg (27.0-33.0); MEAN CORPUSCULAR HGB CONC 33.1 g/dl (32.0-36.5); MEAN CORPUSCULAR VOLUME 87.9 fl (80.0-96.0); PLATELET COUNT, AUTOMATED 249 10^3/uL (150-450); RED BLOOD COUNT 4.47 10^6/uL (4.30-6.10); WHITE BLOOD COUNT 9.6 10^3/uL (4.0-10.0)
[2023-09-19 07:40] LABS: BLOOD UREA NITROGEN 26 MG/DL (9-23); CALCIUM LEVEL 8.4 MG/DL (8.3-10.6); CARBON DIOXIDE LEVEL 33 MMOL/L (20-31); CHLORIDE LEVEL 101 MMOL/L (98-107); CREATININE FOR GFR 0.67 MG/DL (0.70-1.30); GLOMERULAR FILTRATION RATE > 60.0 (>49); GLUCOSE, FASTING 120 MG/DL (74-106); MAGNESIUM LEVEL 1.9 MG/DL (1.8-2.4); POTASSIUM SERUM 4.2 MMOL/L (3.5-5.1); SODIUM LEVEL 139 MMOL/L (136-145)
[2023-09-19] MEDS: KETOROLAC 30 MG/ML 1ML VIAL IV PRN (09:15)
[2023-09-19 14:40] VITALS: BP 126/79; TEMP 98.1; O2SAT 95
[2023-09-19 19:48] VITALS: BP 140/82; TEMP 98.6; O2SAT 97
[2023-09-20 05:27] VITALS: BP 120/72; TEMP 98.1; O2SAT 97
[2023-09-20 07:01] LABS: HEMATOCRIT 35.9 % (42.0-52.0); HEMOGLOBIN 11.8 g/dl (13.5-17.5); MEAN CORPUSCULAR HEMOGLOBIN 28.6 pg (27.0-33.0); MEAN CORPUSCULAR HGB CONC 32.9 g/dl (32.0-36.5); MEAN CORPUSCULAR VOLUME 87.1 fl (80.0-96.0); PLATELET COUNT, AUTOMATED 257 10^3/uL (150-450); RED BLOOD COUNT 4.12 10^6/uL (4.30-6.10); WHITE BLOOD COUNT 7.4 10^3/uL (4.0-10.0)
[2023-09-20 07:23] LABS: BLOOD UREA NITROGEN 29 MG/DL (9-23); CARBON DIOXIDE LEVEL 31 MMOL/L (20-31); CHLORIDE LEVEL 100 MMOL/L (98-107); CREATININE FOR GFR 0.65 MG/DL (0.70-1.30); GLOMERULAR FILTRATION RATE > 60.0 (>49); GLUCOSE, FASTING 123 MG/DL (74-106); MAGNESIUM LEVEL 1.9 MG/DL (1.8-2.4); POTASSIUM SERUM 3.6 MMOL/L (3.5-5.1); SODIUM LEVEL 135 MMOL/L (136-145)
[2023-09-21 05:55] VITALS: BP 116/71; TEMP 98.1; O2SAT 98
[2023-09-22 05:15] VITALS: BP 122/79; TEMP 98.8; O2SAT 97
== END 2023-09-22 12:20 | disposition home or self-care (01) ==
LOC: M ED 17:53 → M ED INP 17:54 → ENRESERV 09-17 14:42 → M MS5PR 09-17 17:48
PROVIDERS: ADMIT Internal Medicine; ATTEND Internal Medicine
DX: S92.325A Nondisplaced fracture of second metatarsal bone, left foot, initial encounter for closed fracture (principal); W19.XXXA Unspecified fall, initial encounter; Y92.89 Other specified places as the place of occurrence of the external cause; Y93.9 Activity, unspecified; Y99.9 Unspecified external cause status; G10 Huntington's disease; E78.5 Hyperlipidemia, unspecified; N40.0 Benign prostatic hyperplasia without lower urinary tract symptoms; K21.9 Gastro-esophageal reflux disease without esophagitis; J44.9 Chronic obstructive pulmonary disease, unspecified; F39 Unspecified mood [affective] disorder; Z79.82 Long term (current) use of aspirin; Z79.899 Other long term (current) drug therapy
CPT/HCPCS: 36415; 73610; 73630; 73700; 80048; 83735; 85025; 85027; 87631; 93971; 96372; 96374; 96376; 97116; 97161; 97165; 97530; 97535; 99284; G0378; J1650; J1885

== ENCOUNTER → 2023-10-03 | Outpatient (REF) | payer MEDICARE, MEDICAID ==
[~2023-10-03] MED LIST changes: +ACET-683 PO; +FINA5TAB2 PO; +OMEP-173 PO; +PERCOCET PO; +SIMV20TA22 PO; +THERTAB52 PO; +VENTAER INH
[2023-10-03 18:42] LABS: APPEARANCE, URINE HAZY (CLEAR); BACTERIA, URINE AUTO NEGATIVE (NEGATIVE); BILIRUBIN, URINE AUTO NEGATIVE (NEGATIVE); BLOOD, URINE BLOOD NEGATIVE (NEGATIVE); CALCIUM OXALATE CRYSTALS SMALL; COLOR, URINE AMBER (YELLOW); GLUCOSE, URINE (UA) AUTO NEGATIVE (NEGATIVE); KETONE, URINE AUTO NEGATIVE (NEGATIVE); LEUKOCYTE ESTERASE, URINE AUTO NEGATIVE (NEGATIVE); MUCUS, URINE SMALL (NEGATIVE); NITRITE, URINE AUTO NEGATIVE (NEGATIVE); PROTEIN, URINE AUTO NEGATIVE (NEGATIVE); RBC, URINE AUTO 1 /HPF (0-3); SPECIFIC GRAVITY URINE AUTO 1.025 (1.002-1.035); SQUAMOUS EPITHELIAL CELL UR AU 0 /HPF (0-6); UROBILINOGEN, URINE AUTO 0.2 mg/dL (0.0-2.0); WBC, URINE AUTO 1 /HPF (0-3)
== END ==
LOC: M SMT 17:11
PROVIDERS: ATTEND Physician Assistant
DX: R30.0 Dysuria (principal)

== ENCOUNTER → 2024-05-19 | Outpatient (CLI) | payer MEDICARE, MEDICAID | LOC: M RAD 08:59 | PROVIDERS: ATTEND Internal Medicine Hematology & Oncology | DX: D64.9 Anemia, unspecified (principal) ==

== ENCOUNTER 2025-04-27 17:21 | Inpatient (IN) | payer MEDICARE, MEDICAID ==
[~2025-04-27] VITALS: Ht 154.9 cm; Wt 77.2 kg
[~2025-04-27 17:21] MED LIST changes: +ARIP1TAB4; -FLOM0.4C39 PO; +TAMS-18 PO
[2025-04-27] MEDS: ACETAMINOPHEN 325 MG TAB PO ONE (18:01)
[2025-04-27 18:23] LABS: BASO # 0.1 10^3/uL (0.0-0.2); BASO % 0.5 % (0.0-1.0); EOS # 0.0 10^3/uL (0.0-0.5); EOS % 0.1 % (0.0-3.0); LYMPH # 1.0 10^3/uL (1.5-5.0); LYMPH % 9.0 % (24.0-44.0); MONO # 1.4 10^3/uL (0.0-0.8); MONO % 13.1 % (2.0-8.0); NEUTROPHILS # 8.4 10^3/uL (1.5-8.5); NEUTROPHILS % 76.8 % (36.0-66.0); PLATELET COUNT, AUTOMATED 260 10^3/uL (150-450)
[2025-04-27 18:37] LABS: INR 1.09
[2025-04-27 18:42] LABS: ALT/SGPT 22 U/L (7.0-40); AST/SGOT 24 U/L (<34); CALCIUM LEVEL 9.0 MG/DL (8.3-10.6); CARBON DIOXIDE LEVEL 32 MMOL/L (20-31); CHLORIDE LEVEL 105 MMOL/L (98-107); CREATININE FOR GFR 0.77 MG/DL (0.70-1.30); GLOMERULAR FILTRATION RATE > 90.0 (>49); POTASSIUM SERUM 4.2 MMOL/L (3.5-5.1); SODIUM LEVEL 146 MMOL/L (136-145)
[2025-04-27 19:10] LABS: C REACTIVE PROTEIN QUANTITATIV 24.93 MG/DL (<1.0)
[2025-04-27 20:53] LABS: APPEARANCE, URINE HAZY (CLEAR); BACTERIA, URINE AUTO NEGATIVE (NEGATIVE); BILIRUBIN, URINE AUTO NEGATIVE (NEGATIVE); BLOOD, URINE BLOOD NEGATIVE (NEGATIVE); GLUCOSE, URINE (UA) AUTO NEGATIVE (NEGATIVE); KETONE, URINE AUTO TRACE mg/dL (NEGATIVE); LEUKOCYTE ESTERASE, URINE AUTO NEGATIVE (NEGATIVE); MUCUS, URINE LARGE (NEGATIVE); NITRITE, URINE AUTO NEGATIVE (NEGATIVE); PROTEIN, URINE AUTO 1+ mg/dL (NEGATIVE); RBC, URINE AUTO 6 /HPF (0-3); SPECIFIC GRAVITY URINE AUTO 1.026 (1.002-1.035); SQUAMOUS EPITHELIAL CELL UR AU 0 /HPF (0-6); UROBILINOGEN, URINE AUTO 4.0 mg/dL (0.0-2.0); WBC, URINE AUTO 0 /HPF (0-3)
[2025-04-27] MEDS: LIDOCAINE 2% 5 ML JELLY UROJET TOP ONE (22:31)
[2025-04-27] MEDS ORDERED: ARIP1TAB6 PO (22:31)
[2025-04-27] MEDS ORDERED: VENL150C43 PO (22:31)
[2025-04-27] MEDS ORDERED: OMEP40CA5 PO (22:31)
[2025-04-27] MEDS ORDERED: HOME MED LIST COMPLETE! XX SCH (22:35)
[2025-04-27] MEDS: NS 0.45% 1,000 ML IV SCH (23:57)
[2025-04-27] MEDS: cefTRIAXone SOD 1 GM in DEXTROSE 5% (D5W) ADV/MINI-BAG 50 ML IV SCH (23:58)
[2025-04-28 00:09] LABS: APPEARANCE, URINE CLEAR (CLEAR); BACTERIA, URINE AUTO NEGATIVE (NEGATIVE); BILIRUBIN, URINE AUTO NEGATIVE (NEGATIVE); BLOOD, URINE BLOOD NEGATIVE (NEGATIVE); GLUCOSE, URINE (UA) AUTO NEGATIVE (NEGATIVE); KETONE, URINE AUTO TRACE mg/dL (NEGATIVE); LEUKOCYTE ESTERASE, URINE AUTO NEGATIVE (NEGATIVE); MUCUS, URINE SMALL (NEGATIVE); NITRITE, URINE AUTO NEGATIVE (NEGATIVE); PROTEIN, URINE AUTO 1+ mg/dL (NEGATIVE); RBC, URINE AUTO 2 /HPF (0-3); SPECIFIC GRAVITY URINE AUTO 1.031 (1.002-1.035); SQUAMOUS EPITHELIAL CELL UR AU 0 /HPF (0-6); UROBILINOGEN, URINE AUTO 4.0 mg/dL (0.0-2.0); WBC, URINE AUTO 1 /HPF (0-3)
[2025-04-28] MEDS ORDERED: ALBUTEROL SULFATE 2.5 MG/0.5 ML INH CONCENTRATE NEB SOLN NEB PRN (02:25)
[2025-04-28 04:52] LABS: BASO # 0.1 10^3/uL (0.0-0.2); BASO % 0.5 % (0.0-1.0); EOS # 0.1 10^3/uL (0.0-0.5); EOS % 1.2 % (0.0-3.0); LYMPH # 1.0 10^3/uL (1.5-5.0); LYMPH % 10.6 % (24.0-44.0); MONO # 1.2 10^3/uL (0.0-0.8); MONO % 12.6 % (2.0-8.0); NEUTROPHILS # 7.1 10^3/uL (1.5-8.5); NEUTROPHILS % 74.6 % (36.0-66.0); PLATELET COUNT, AUTOMATED 227 10^3/uL (150-450)
[2025-04-28 05:26] LABS: ALT/SGPT 19 U/L (7.0-40); AST/SGOT 18 U/L (<34); CALCIUM LEVEL 8.5 MG/DL (8.3-10.6); CARBON DIOXIDE LEVEL 29 MMOL/L (20-31); CHLORIDE LEVEL 105 MMOL/L (98-107); CREATININE FOR GFR 0.80 MG/DL (0.70-1.30); GLOMERULAR FILTRATION RATE > 90.0 (>49); MAGNESIUM LEVEL 1.9 MG/DL (1.8-2.4); POTASSIUM SERUM 4.2 MMOL/L (3.5-5.1); SODIUM LEVEL 145 MMOL/L (136-145)
[2025-04-28 08:18] LABS: C REACTIVE PROTEIN QUANTITATIV 23.77 MG/DL (<1.0)
[2025-04-28] MEDS: IPRATROPIUM 0.5 MG/ALBUTEROL 2.5 MG INH SOL UD 3 ML NEB SCH (08:27)
[2025-04-28 08:35] VITALS: O2SAT 90
[2025-04-28] MEDS ORDERED: ISOVUE-370 76% 100 ML VIAL As Ordered ONE (09:16)
[2025-04-28] MEDS: SYMBICORT 80/4.5MCG INHALER 6GM INH SCH (11:55)
[2025-04-28] MEDS: TIOTROPIUM BROM 2.5MCG/ACTUATION 4GM INH INH SCH (11:55)
[2025-04-28] MEDS: DOXYCYCLINE HYCLATE 100 MG TABLET PO SCH (12:30)
[2025-04-28] MEDS: ASPIRIN 81 MG ENTERIC TABLET PO SCH (12:30)
[2025-04-28] MEDS: FINASTERIDE 5 MG TAB PO SCH (12:31)
[2025-04-28] MEDS: ENOXAPARIN 40 MG/0.4 ML SYRINGE (J1650 PER 10MG) SC SCH (12:31)
[2025-04-28] MEDS: PIPERACILLIN/TAZOBACTAM SOD 3.375 GM in DEXTROSE 5% (D5W) ADV/MINI-BAG 50 ML IV SCH (12:32)
[2025-04-28] MEDS: OMEPRAZOLE 20MG CAP PO SCH (16:33)
[2025-04-28] MEDS: TAMSULOSIN 0.4 MG CAP PO SCH (17:25)
[2025-04-28] MEDS: ACETAMINOPHEN 325 MG TAB PO PRN (17:29)
[2025-04-28] MEDS: VENLAFAXINE **XR** 75MG CAPSULE PO SCH (20:43)
[2025-04-28] MEDS: SIMVASTATIN 20 MG TAB PO SCH (20:43)
[2025-04-28] MEDS ORDERED: traZODone 50 MG TAB PO SCH (21:00)
[2025-04-28] MEDS ORDERED: OMEPRAZOLE 20MG CAP PO SCH (21:00)
[2025-04-28 21:50] VITALS: BP 116/66; TEMP 99.2; O2SAT 95
[2025-04-29 04:27] VITALS: BP 116/65; TEMP 98.6; O2SAT 92
[2025-04-29 06:45] LABS: BASO # 0.1 10^3/uL (0.0-0.2); BASO % 0.6 % (0.0-1.0); EOS # 0.3 10^3/uL (0.0-0.5); EOS % 2.8 % (0.0-3.0); LYMPH # 0.9 10^3/uL (1.5-5.0); LYMPH % 10.4 % (24.0-44.0); MONO # 0.9 10^3/uL (0.0-0.8); MONO % 10.3 % (2.0-8.0); NEUTROPHILS # 6.7 10^3/uL (1.5-8.5); NEUTROPHILS % 75.5 % (36.0-66.0); PLATELET COUNT, AUTOMATED 247 10^3/uL (150-450)
[2025-04-29 07:11] LABS: CALCIUM LEVEL 7.7 MG/DL (8.3-10.6); CARBON DIOXIDE LEVEL 25 MMOL/L (20-31); CHLORIDE LEVEL 105 MMOL/L (98-107); CREATININE FOR GFR 0.72 MG/DL (0.70-1.30); GLOMERULAR FILTRATION RATE > 90.0 (>49); POTASSIUM SERUM 3.4 MMOL/L (3.5-5.1); SODIUM LEVEL 140 MMOL/L (136-145)
[2025-04-29 07:21] LABS: C REACTIVE PROTEIN QUANTITATIV 16.61 MG/DL (<1.0)
[2025-04-29] MEDS: POTASSIUM CHLORIDE 10MEQ SR TABLET PO ONE (10:35)
[2025-04-29 11:59] VITALS: BP 118/76; TEMP 97.9; O2SAT 92
[2025-04-29] MEDS ORDERED: traZODone 50 MG TAB PO PRN (16:20)
[2025-04-29 19:36] VITALS: BP 116/75; TEMP 97.9; O2SAT 95
[2025-04-30 03:55] VITALS: BP 113/73; TEMP 98.1; O2SAT 93
[2025-04-30 06:55] LABS: BASO # 0.1 10^3/uL (0.0-0.2); BASO % 0.7 % (0.0-1.0); EOS # 0.4 10^3/uL (0.0-0.5); EOS % 5.8 % (0.0-3.0); LYMPH # 0.9 10^3/uL (1.5-5.0); LYMPH % 12.9 % (24.0-44.0); MONO # 0.8 10^3/uL (0.0-0.8); MONO % 11.8 % (2.0-8.0); NEUTROPHILS # 4.7 10^3/uL (1.5-8.5); NEUTROPHILS % 68.2 % (36.0-66.0); PLATELET COUNT, AUTOMATED 274 10^3/uL (150-450)
[2025-04-30 07:22] LABS: C REACTIVE PROTEIN QUANTITATIV 11.26 MG/DL (<1.0); CALCIUM LEVEL 8.2 MG/DL (8.3-10.6); CARBON DIOXIDE LEVEL 28 MMOL/L (20-31); CHLORIDE LEVEL 104 MMOL/L (98-107); CREATININE FOR GFR 0.67 MG/DL (0.70-1.30); GLOMERULAR FILTRATION RATE > 90.0 (>49); POTASSIUM SERUM 4.4 MMOL/L (3.5-5.1); SODIUM LEVEL 141 MMOL/L (136-145)
[2025-04-30] MEDS: AUGMENTIN 875 MG TAB PO SCH (11:10)
[2025-04-30 12:00] VITALS: BP 142/80; TEMP 98.2; O2SAT 95
[2025-04-30] MEDS ORDERED: AMOX875T2 PO (14:39)
[2025-04-30] MEDS ORDERED: DOXY-440 PO (14:39)
[2025-04-30] MEDS: FLUZONE VACCINE TRI PF(25-26) 0.5ML SYRINGE IM.IMMUN ONE (15:24)
== END 2025-04-30 16:38 | DRG 57 ==
LOC: M ED 17:21 → EDBD 17:21 → M ED INP 17:22 → OBSVTOIN 04-28 12:20 → M MSPAV 04-28 20:37
PROVIDERS: ADMIT Student in an Organized Health Care Education/Training Program; ATTEND Internal Medicine
DX: G10 Huntington's disease (principal); R65.10 Systemic inflammatory response syndrome (SIRS) of non-infectious origin without acute organ dysfunction; E87.0 Hyperosmolality and hypernatremia; E86.0 Dehydration; E78.5 Hyperlipidemia, unspecified; K21.9 Gastro-esophageal reflux disease without esophagitis; N40.0 Benign prostatic hyperplasia without lower urinary tract symptoms; E87.6 Hypokalemia; J44.9 Chronic obstructive pulmonary disease, unspecified; G47.33 Obstructive sleep apnea (adult) (pediatric); F39 Unspecified mood [affective] disorder; R53.1 Weakness; R50.9 Fever, unspecified; Z79.899 Other long term (current) drug therapy; Z79.82 Long term (current) use of aspirin